=== PATIENT | female | born 1995 | race Two or more races ===

== ENCOUNTER → 2017-11-26 | Outpatient (CLI) | payer OTHER ==
[2017-11-26 09:34] LABS: ABSOLUTE LYMPHOCYTES (AUTO) 1.9 10^3/uL (0.5-4.7); ABSOLUTE MONOCYTES (AUTO) 0.4 10^3/uL (0.1-1.4); ABSOLUTE NEUT (AUTO) 2.8 10^3/uL (1.7-8.2); BASOPHILS % (AUTO) 0.8 % (0-2); EOSINOPHILS % (AUTO) 0.9 % (0-6); HEMATOCRIT 38.4 % (36.0-47.0); HEMOGLOBIN 13.1 g/dL (12.0-15.5); LYMPHOCYTES % (AUTO) 36.7 % (13-45); MEAN CORPUSCULAR HEMOGLOBIN 28.6 pg (27.0-33.4); MEAN CORPUSCULAR HGB CONC 34.2 g/dL (32.0-36.0); MEAN CORPUSCULAR VOLUME 84 fl (80-97); MONOCYTES % (AUTO) 7.9 % (3-13); PLATELET COUNT 266 10^3/uL (150-450); RED BLOOD COUNT 4.59 10^6/uL (3.72-5.28); RED CELL DISTRIBUTION WIDTH 13.2 % (11.5-14.0); SEGMENTED NEUTROPHILS % (AUTO) 53.7 % (42-78); TOTAL CELLS COUNTED % (AUTO) 100 %; WHITE BLOOD COUNT 5.2 10^3/uL (4.0-10.5)
[2017-11-26 09:50] LABS: ALANINE AMINOTRANSFERASE 30 U/L (9-52); ALBUMIN 4.3 g/dL (3.5-5.0); ALKALINE PHOSPHATASE 60 U/L (38-126); ANION GAP 11 (5-19); ASPARTATE AMINO TRANSFERASE 28 U/L (14-36); BILIRUBIN,DIRECT 0.3 mg/dL (0.0-0.4); BILIRUBIN,TOTAL 0.5 mg/dL (0.2-1.3); BLOOD UREA NITROGEN 15 mg/dL (7-20); CALCIUM 9.5 mg/dL (8.4-10.2); CARBON DIOXIDE 26 mmol/L (22-30); CHLORIDE 106 mmol/L (98-107); CHOLESTEROL 204.77 mg/dL (0-200); GLUCOSE 94 mg/dL (75-110); POTASSIUM 4.4 mmol/L (3.6-5.0); SODIUM 143.4 mmol/L (137-145); TOTAL PROTEIN 7.2 g/dL (6.3-8.2); TRIGLYCERIDES 53 mg/dL (<150)
[2017-11-26 10:01] LABS: DIRECT LDL 122 mg/dL (<100)
== END ==
LOC: LAB 08:40
PROVIDERS: ATTEND Physician Assistant
DX: R11.2 Nausea with vomiting, unspecified (principal); R53.83 Other fatigue; R14.0 Abdominal distension (gaseous)
CPT/HCPCS: 36415; 80053; 80061; 83516; 84443; 85025

== ENCOUNTER 2017-12-06 18:42 | Emergency (ER) | payer OTHER ==
--- NOTE | 2017-12-06 19:01 | ER Document Report ---
ED Medical Screen (RME) - General Chief Complaint: Vaginal Bleeding Stated Complaint: VAGINAL BLEEDING Time Seen by Provider: 12/06/17 18:56 Notes: RAPID MEDICAL EVALUATION DISCLOSURE I have seen this patient as part of a Rapid Medical Evaluation and, if applicable, placed any initially appropriate orders. The patient will be seen and fully evaluated, including a full history and physical exam, by a provider ( in Main ED or Fast Track) when a room becomes available. 22-year-old female here with complaints of left lower quadrant abdominal pain vaginal bleeding that started earlier today. She has passed some clots. She has had some lightheadedness but no actual syncope. She denies any dysuria frequency hesitancy. She does have a history of left-sided ovarian cyst. Has not taken anything for the pain. EXAM Mild LLQ TTP TRAVEL OUTSIDE OF THE [place] IN LAST 30 DAYS: No - Related Data Allergies/Adverse Reactions: No Known Allergies Allergy (Verified 12/06/17 18:59) Past Medical History - General Last Menstrual Period: 11/20/2017 - Social History Chew tobacco use (# tins/day): No Frequency of alcohol use: Occasional Drug Abuse: None Renal/ Medical History: Denies: Hx Peritoneal Dialysis Physical Exam - Vital signs Vitals: Temp Pulse Resp BP Pulse Ox 98.4 F 70 18 122/79 98 12/06/17 18:52 12/06/17 18:52 12/06/17 18:52 12/06/17 18:52 12/06/17 18:52 Course - Vital Signs Vital signs: Temp Pulse Resp BP Pulse Ox 98.4 F 70 18 122/79 98 12/06/17 18:52 12/06/17 18:52 12/06/17 18:52 12/06/17 18:52 12/06/17 18:52
[2017-12-06 19:25] LABS: ABSOLUTE BASOPHILS # (AUTO) 0.1 10^3/uL (0.0-0.2); ABSOLUTE EOSINOPHILS # (AUTO) 0.1 10^3/uL (0.0-0.6); ABSOLUTE LYMPHOCYTES (AUTO) 3.1 10^3/uL (0.5-4.7); ABSOLUTE MONOCYTES (AUTO) 0.5 10^3/uL (0.1-1.4); ABSOLUTE NEUT (AUTO) 3.2 10^3/uL (1.7-8.2); BASOPHILS % (AUTO) 0.9 % (0-2); EOSINOPHILS % (AUTO) 1.7 % (0-6); HEMATOCRIT 38.8 % (36.0-47.0); HEMOGLOBIN 13.2 g/dL (12.0-15.5); LYMPHOCYTES % (AUTO) 44.4 % (13-45); MEAN CORPUSCULAR HEMOGLOBIN 28.7 pg (27.0-33.4); MEAN CORPUSCULAR HGB CONC 34.2 g/dL (32.0-36.0); MEAN CORPUSCULAR VOLUME 84 fl (80-97); MONOCYTES % (AUTO) 7.3 % (3-13); PLATELET COUNT 341 10^3/uL (150-450); RED BLOOD COUNT 4.61 10^6/uL (3.72-5.28); RED CELL DISTRIBUTION WIDTH 12.8 % (11.5-14.0); SEGMENTED NEUTROPHILS % (AUTO) 45.7 % (42-78); TOTAL CELLS COUNTED % (AUTO) 100 %; WHITE BLOOD COUNT 6.9 10^3/uL (4.0-10.5)
[2017-12-06 19:33] LABS: APPEARANCE,URINE CLEAR; BILIRUBIN,URINE NEGATIVE (NEGATIVE); COLOR,URINE YELLOW; GLUCOSE, URINE NEGATIVE (NEGATIVE); KETONES,URINE NEGATIVE (NEGATIVE); LEUKOCYTE ESTERASE,URINE NEGATIVE (NEGATIVE); NITRITE,URINE NEGATIVE (NEGATIVE); PROTEIN,URINE NEGATIVE (NEGATIVE); URINE SPECIFIC GRAVITY 1.023; UROBILINOGEN,URINE NEGATIVE mg/dL (<2.0)
[2017-12-06 19:42] LABS: ANION GAP 12 (5-19); BLOOD UREA NITROGEN 14 mg/dL (7-20); CALCIUM 9.9 mg/dL (8.4-10.2); CARBON DIOXIDE 29 mmol/L (22-30); CHLORIDE 103 mmol/L (98-107); GLUCOSE 94 mg/dL (75-110); POTASSIUM 4.4 mmol/L (3.6-5.0); SODIUM 143.6 mmol/L (137-145)
--- NOTE | 2017-12-06 19:56 | RADIOLOGY REPORT (SQ) ---
EXAM DESCRIPTION: U/S NON OB PEL TV W/DOPPLER COMPLETED DATE/TIME: 12/06/2017 7:35 pm REASON FOR STUDY: L pelvic pain, hx cyst; eval cyst torsion COMPARISON: None. TECHNIQUE: Dynamic and static grayscale images acquired of the pelvis via transvaginal approach and recorded on PACS. Additional selected color Doppler and spectral images recorded. LIMITATIONS: Intervening bowel gas precludes adequate visualization of the ovaries. FINDINGS: UTERUS: Contour normal. No mass. ENDOMETRIAL STRIPE: No focal or generalized thickening. No masses. CERVIX: No nabothian cysts. RIGHT OVARY AND DOPPLER: Ovary not visualized. LEFT OVARY AND DOPPLER: Ovary not visualized. FREE FLUID: A small amount of simple appearing free fluid is seen within the pelvic cul-de-sac. OTHER: No other significant finding. MEASUREMENTS: UTERUS: 7.2 x 3.7 x 4.4 cm ENDOMETRIAL STRIPE: 0.1 cm RIGHT OVARY: Not visualized. LEFT OVARY: Not visualized. IMPRESSION: Intervening bowel gas precludes visualization of the ovaries. Normal sonographic appear ance of the uterus. TECHNICAL DOCUMENTATION: JOB ID: [id number]- All Rights Reserved Rev Reading location - IP/workstation name: [email or web address]
--- NOTE | 2017-12-06 20:15 | ER Document Report ---
ED GI/ - General Chief Complaint: Vaginal Bleeding Stated Complaint: VAGINAL BLEEDING Time Seen by Provider: 12/06/17 18:56 Mode of Arrival: Ambulatory Information source: Patient Notes: Patient is a 22-year-old female who presents to the ER today for heavy vaginal bleeding that started today with clots and some left lower quadrant pain. Patient states that she just had her menstrual cycle last week so "they should not be happening." Patient admits to history of ovarian cysts. Patient denies that she knows of. Patient denies any abnormal vaginal discharge or dysuria. TRAVEL OUTSIDE OF THE [place] IN LAST 30 DAYS: No - Related Data Allergies/Adverse Reactions: No Known Allergies Allergy (Verified 12/06/17 18:59) Past Medical History - General Information source: Patient Last Menstrual Period: 11/20/2017 - Social History Smoking Status: Never Smoker Chew tobacco use (# tins/day): No Frequency of alcohol use: Occasional Drug Abuse: None Family History: Reviewed & Not Pertinent Patient has suicidal ideation: No Patient has homicidal ideation: No Renal/ Medical History: Denies: Hx Peritoneal Dialysis Review of Systems - Review of Systems Constitutional: No symptoms reported EENT: No symptoms reported Cardiovascular: No symptoms reported Respiratory: No symptoms reported Gastrointestinal: No symptoms reported Genitourinary: No symptoms reported Female Genitourinary: See HPI Musculoskeletal: No symptoms reported Skin: No symptoms reported Hematologic/Lymphatic: No symptoms reported Neurological/Psychological: No symptoms reported Physical Exam - Vital signs Vitals: Temp Pulse Resp BP Pulse Ox 98.4 F 70 18 122/79 98 12/06/17 18:52 12/06/17 18:52 12/06/17 18:52 12/06/17 18:52 12/06/17 18:52 - Notes Notes: PHYSICAL EXAMINATION: GENERAL: Well-appearing and in no acute distress. HEAD: Atraumatic, normocephalic. EYES: Pupils equal round and reactive to light, extraocular movements intact, sclera anicteric, conjunctiva are normal. NECK: Normal range of motion, supple without lymphadenopathy LUNGS: CTAB and equal. No wheezes rales or rhonchi. HEART: Regular rate and rhythm without murmurs ABDOMEN: Soft, mild left lower quadrant tenderness. No guarding, no rebound BACK: no vertebral tenderness, normal ROM GI/: no CVA tenderness EXTREMITIES: Normal range of motion, no pitting edema. No cyanosis. NEUROLOGICAL: Cranial nerves grossly intact. Normal sensory/motor exams. PSYCH: Normal mood, normal affect. SKIN: Warm, Dry, normal turgor, no rashes or lesions noted Course - Re-evaluation Re-evalutation: 12/06/17 22:28 Lab work is all unremarkable today including a normal hemoglobin and negative test. Transvaginal ultrasound ordered in triage reports a normal uterus but cannot visualize ovaries due to overlying bowel gas. Patient may have an ovarian cyst that we cannot see today. I did offer patient pelvic and she declines. Urinalysis negative for infection. 12/06/17 22:29 - Vital Signs Vital signs: Temp Pulse Resp BP Pulse Ox 98.4 F 72 20 112/68 100 12/06/17 20:41 12/06/17 20:41 12/06/17 20:41 12/06/17 20:41 12/06/17 20:41 - Laboratory Result Diagrams: 12/06/17 19:12 12/06/17 19:12 Laboratory results interpreted by me: 12/06/17 19:12 Urine Blood SMALL H Discharge - Discharge Clinical Impression: Heavy period Qualifiers: Menorrahagia type: with irregular cycle Qualified Code(s): N92.1 - Excessive and frequent menstruation with irregular cycle Condition: Stable Disposition: HOME, SELF-CARE Additional Instructions: Return immediately for any new or worsening symptoms. Follow up with primary care provider, call tomorrow to make followup appointment. Drink plenty of water. Prescriptions: Ibuprofen [Motrin 800 mg Tablet] 800 mg PO Q8H PRN #30 tab PRN Reason: Referrals: [facility] [Provider Group] - Follow up as needed
[2017-12-06 21:03] VITALS: BP 112/68
== END 2017-12-06 20:43 | disposition home or self-care (01) ==
LOC: ER 18:42
DX: N92.1 Excessive and frequent menstruation with irregular cycle (principal); R10.32 Left lower quadrant pain; Z87.42 Personal history of other diseases of the female genital tract
CPT/HCPCS: 36415; 76830; 80048; 81001; 81025; 85025; 93976; 99284

== ENCOUNTER 2018-06-25 14:43 | Emergency (ER) | payer SELFPAY ==
--- NOTE | 2018-06-25 15:10 | ER Document Report ---
ED Medical Screen (RME) - General Chief Complaint: Abdominal Pain Stated Complaint: ABDOMINAL PAIN/DIZZINESS Time Seen by Provider: 06/25/18 14:49 TRAVEL OUTSIDE OF THE [place] IN LAST 30 DAYS: No - HPI Notes: 06/25/18 15:09 Increased pain right ovary states history of blood clots on a very scheduled for surgery told to come in by PROMOTIONS DIRECTOR - Related Data Allergies/Adverse Reactions: No Known Allergies Allergy (Verified 06/25/18 14:59) Past Medical History - Social History Frequency of alcohol use: None Drug Abuse: None - Past Medical History Cardiac Medical History: Denies: Hx Coronary Artery Disease, Hx Heart Attack, Hx Hypertension Pulmonary Medical History: Denies: Hx Asthma, Hx Bronchitis, Hx COPD, Hx Pneumonia Neurological Medical History: Denies: Hx Cerebrovascular Accident, Hx Seizures Renal/ Medical History: Denies: Hx Peritoneal Dialysis Musculoskeltal Medical History: Denies Hx Arthritis Past Surgical History: Reports: Hx Section - 1 - Immunizations Hx Diphtheria, Pertussis, Tetanus Vaccination: No History of Influenza Vaccine for 02/2017 - 07/2017 Season: No Review of Systems - Review of Systems Gastrointestinal: Abdominal pain Physical Exam - Vital signs Vitals: Temp Pulse Resp BP Pulse Ox 98.7 F 79 16 116/70 99 06/25/18 14:48 06/25/18 14:48 06/25/18 14:48 06/25/18 14:48 06/25/18 14:48 - Respiratory Respiratory status: No respiratory distress Chest status: Nontender Breath sounds: Normal Chest palpation: Normal Course - Vital Signs Vital signs: Temp Pulse Resp BP Pulse Ox 97.9 F 114 H 22 H 130/83 H 98 06/25/18 14:53 06/25/18 14:53 06/25/18 14:53 06/25/18 14:53 06/25/18 14:53
[2018-06-25 15:27] LABS: ABSOLUTE EOSINOPHILS # (AUTO) 0.1 10^3/uL (0.0-0.6); ABSOLUTE LYMPHOCYTES (AUTO) 1.8 10^3/uL (0.5-4.7); ABSOLUTE MONOCYTES (AUTO) 0.8 10^3/uL (0.1-1.4); ABSOLUTE NEUT (AUTO) 6.1 10^3/uL (1.7-8.2); BASOPHILS % (AUTO) 0.5 % (0-2); EOSINOPHILS % (AUTO) 1.2 % (0-6); HEMATOCRIT 40.3 % (36.0-47.0); HEMOGLOBIN 13.7 g/dL (12.0-15.5); MEAN CORPUSCULAR HEMOGLOBIN 28.4 pg (27.0-33.4); MEAN CORPUSCULAR VOLUME 84 fl (80-97); MONOCYTES % (AUTO) 8.6 % (3-13); PLATELET COUNT 259 10^3/uL (150-450); RED BLOOD COUNT 4.82 10^6/uL (3.72-5.28); RED CELL DISTRIBUTION WIDTH 13.5 % (11.5-14.0); SEGMENTED NEUTROPHILS % (AUTO) 69.7 % (42-78); TOTAL CELLS COUNTED % (AUTO) 100 %; WHITE BLOOD COUNT 8.8 10^3/uL (4.0-10.5)
[2018-06-25] MEDS ORDERED: OXYCODONE-ACETAMINOPHEN 5-325 MG TABLET PO ONE (15:38)
[2018-06-25] MEDS ORDERED: ONDANSETRON 4 MG TAB.RAPDIS PO ONE (15:38)
[2018-06-25 15:44] LABS: ALANINE AMINOTRANSFERASE 27 U/L (9-52); ALBUMIN 4.7 g/dL (3.5-5.0); ALKALINE PHOSPHATASE 71 U/L (38-126); ANION GAP 11 (5-19); ASPARTATE AMINO TRANSFERASE 17 U/L (14-36); BILIRUBIN,DIRECT 0.1 mg/dL (0.0-0.4); BILIRUBIN,TOTAL 0.4 mg/dL (0.2-1.3); BLOOD UREA NITROGEN 19 mg/dL (7-20); CALCIUM 9.9 mg/dL (8.4-10.2); CARBON DIOXIDE 28 mmol/L (22-30); CHLORIDE 102 mmol/L (98-107); GLUCOSE 93 mg/dL (75-110); LIPASE 90.5 U/L (23-300); SODIUM 140.7 mmol/L (137-145); TOTAL PROTEIN 7.6 g/dL (6.3-8.2)
[2018-06-25 15:45] LABS: POTASSIUM 4.8 mmol/L (3.6-5.0)
--- NOTE | 2018-06-25 15:46 | ER Document Report ---
ED General - General Chief Complaint: Abdominal Pain Stated Complaint: ABDOMINAL PAIN/DIZZINESS Time Seen by Provider: 06/25/18 14:49 Mode of Arrival: Ambulatory Information source: Patient, Dr. Office Notes: 22-year-old female with history of ovarian cysts, known right ovarian vein clot was sent over by her LOG MANAGER Dr. Roberts due to the patient's report of increasing pain, nausea and dizziness. Patient reports that she is scheduled for an oophorectomy next July 03. Patient is not currently on any anticoagulation. Patient denies dysuria, hematuria, vaginal discharge, shortn ess of breath, chest pain. She does admit to associated nausea without vomiting, low back pain and increased right lower quadrant abdominal pain. Last menstrual period was 1 month prior to arrival. TRAVEL OUTSIDE OF THE [place] IN LAST 30 DAYS: No - HPI Onset: Other Onset/Duration: Intermittent Quality of pain: Throbbing Severity: Moderate Associated symptoms: Chills, Nausea, Other - Back pain, dizziness. denies: Chest pain, Diarrhea, Fever, Vomiting, Shortness of breath Exacerbated by: Denies Relieved by: Denies Similar symptoms previously: Yes Recently seen / treated by doctor: Yes - Related Data Allergies/Adverse Reactions: No Known Allergies Allergy (Verified 06/25/18 14:59) Past Medical History - General Information source: Patient - Social History Smoking Status: Never Smoker Frequency of alcohol use: None Drug Abuse: None Lives with: Spouse/Significant other Family History: Reviewed & Not Pertinent Patient has suicidal ideation: No Patient has homicidal ideation: No - Past Medical History Cardiac Medical History: Denies: Hx Coronary Artery Disease, Hx Heart Attack, Hx Hypertension Pulmonary Medical History: Denies: Hx Asthma, Hx Bronchitis, Hx COPD, Hx Pneumonia Neurological Medical History: Denies: Hx Cerebrovascular Accident, Hx Seizures Renal/ Medical History: Denies: Hx Peritoneal Dialysis Musculoskeletal Medical History: Denies Hx Arthritis Past Surgical History: Reports: Hx Section - 1 - Immunizations Hx Diphtheria, Pertussis, Tetanus Vaccination: No Review of Systems - Review of Systems Notes: REVIEW OF SYSTEMS: CONSTITUTIONAL : Denies fever, chills, or sweats. Denies recent illness. Denies weight loss, recent hospitalizations. EENT: Denies visual changes, eye pain. Denies sore throat, oral lesions, difficulty swallowing. CARDIOVASCULAR: Denies chest pain. Denies palpitations. Denies lower extremity edema. RESPIRATORY: Denies cough. Denies shortness of breath, wheezing. GASTROINTESTINAL: Denies abdominal distention. Denies vomiting, or diarrhea. Denies blood in vomitus, stools, or per rectum. Denies black, tarry stools. Denies constipation. GENITOURINARY: Denies difficulty urinating, painful urination, frequency, blood in urine, or vaginal discharge. MUSCULOSKELETAL: Denies neck pain or stiffness. Denies joint pain or swelling. SKIN: Denies rash, lesions or sores. HEMATOLOGIC : Denies easy bruising or bleeding. LYMPHATIC: Denies swollen glands. NEUROLOGICAL: Denies confusion or altered mental status. Denies loss of consciousness. Denies dizziness or lightheadedness. Denies headache. Denies weakness or paralysis. Denies problems difficulty with ambulation, slurred speech. Denies sensory loss, numbness, or tingling. Denies seizures. PSYCHIATRIC: Denies anxiety or stress. Denies depression, suicidal ideation, or homicidal ideation. Denies visual or auditory hallucinations. Physical Exam - Vital signs Vitals: Temp Pulse Resp BP Pulse Ox 98.7 F 79 16 116/70 99 06/25/18 14:48 06/25/18 14:48 06/25/18 14:48 06/25/18 14:48 06/25/18 14:48 - Notes Notes: PHYSICAL EXAMINATION: GENERAL: Well-appearing, well-nourished and in no acute distress. HEAD: Atraumatic, normocephalic. EYES: Pupils equal round and reactive to light, extraocular movements intact, conjunctiva are normal. ENT: Nares patent, oropharynx clear without exudates. Moist mucous membranes. NECK: Normal range of motion, supple without lymphadenopathy LUNGS: Breath sounds clear to auscultation bilaterally and equal. No wheezes rales or rhonchi. HEART: Regular rate and rhythm without murmurs ABDOMEN: Soft, nontender, nondistended abdomen. No guarding, no rebound. No masses appreciated. Female : Pelvic exam; External genitalia unremarkable. Speculum exam with white discharge. Vaginal wall unremarkable. Os closed. No cervical motion tenderness. right adnexal tenderness appreciated. Swabs obtained for gonorrhea, chlamydia and wet prep. Musculoskeletal: Normal range of motion, no pitting or edema. No cyanosis. NEUROLOGICAL: Cranial nerves grossly intact. Normal speech, normal gait. Normal sensory, motor exams PSYCH: Normal mood, normal affect. SKIN: Warm, Dry, normal turgor, no rashes or lesions noted. Course - Re-evaluation Re-evalutation: 06/25/18 15:50 Temp Pulse Resp BP Pulse Ox 97.9 F 114 H 22 H 130/83 H 98 06/25/18 14:53 06/25/18 14:53 06/25/18 14:53 06/25/18 14:53 06/25/18 14:53 Transvaginal US 06/25/18 14:54 IMPRESSION: UNABLE TO VISUALIZE THE LEFT OVARY. 1.4 X 3.0 CM COMPLEX CYST CONTAINING DEBRIS IN THE RIGHT OVARY. NO OTHER SIGNIFICANT FINDING. Laboratory 06/25/18 06/25/18 06/25/18 15:07 15:07 15:07 WBC 8.8 RBC 4.82 Hgb 13.7 Hct 40.3 MCV 84 MCH 28.4 MCHC 34.0 RDW 13.5 Plt Count 259 Seg Neutrophils % 69.7 Lymphocytes % 20.0 Monocytes % 8.6 Eosinophils % 1.2 Basophils % 0.5 Absolute Neutrophils 6.1 Absolute Lymphocytes 1.8 Absolute Monocytes 0.8 Absolute Eosinophils 0.1 Absolute Basophils 0.0 Sodium 140.7 Potassium 4.8 Chloride 102 Carbon Dioxide 28 Anion Gap 11 BUN 19 Creatinine 0.62 Est GFR ( Amer) > 60 Est GFR (Non-Af Amer) > 60 Glucose 93 Calcium 9.9 Total Bilirubin 0.4 Direct Bilirubin 0.1 Neonat Total Bilirubin Not Reportable Neonat Direct Bilirubin Not Reportable Neonat Indirect Bili Not Reportable AST 17 ALT 27 Alkaline Phosphatase 71 Total Protein 7.6 Albumin 4.7 Lipase 90.5 Serum HCG, Qual NEGATIVE Urine Color Urine Appearance Urine pH Ur Specific [place] Urine Protein Urine Glucose (UA) Urine Ketones Urine Blood Urine Nitrite Urine Bilirubin Urine Urobilinogen Ur Leukocyte Esterase Urine WBC (Auto) Urine RBC (Auto) Urine Bacteria (Auto) Squamous Epi Cells Auto Urine Mucus (Auto) Urine Ascorbic Acid Epi Cells (Wet Prep) Bacteria (Wet Prep) Trichomonas (Wet Prep) Vaginal WBC Vaginal RBC Vaginal Yeast 06/25/18 06/25/18 15:08 16:00 WBC RBC Hgb Hct MCV MCH MCHC RDW Plt Count Seg Neutrophils % Lymphocytes % Monocytes % Eosinophils % Basophils % Absolute Neutrophils Absolute Lymphocytes Absolute Monocytes Absolute Eosinophils Absolute Basophils Sodium Potassium Chloride Carbon Dioxide Anion Gap BUN Creatinine Est GFR ( Amer) Est GFR (Non-Af Amer) Glucose Calcium Total Bilirubin Direct Bilirubin Neonat Total Bilirubin Neonat Direct Bilirubin Neonat Indirect Bili AST ALT Alkaline Phosphatase Total Protein Albumin Lipase Serum HCG, Qual Urine Color YELLOW Urine Appearance CLEAR Urine pH 6.0 Ur Specific [place] 1.024 Urine Protein NEGATIVE Urine Glucose (UA) NEGATIVE Urine Ketones NEGATIVE Urine Blood SMALL H Urine Nitrite NEGATIVE Urine Bilirubin NEGATIVE Urine Urobilinogen NEGATIVE Ur Leukocyte Esterase NEGATIVE Urine WBC (Auto) 1 Urine RBC (Auto) 2 Urine Bacteria (Auto) 1+ Squamous Epi Cells Auto 1 Urine Mucus (Auto) RARE Urine Ascorbic Acid NEGATIVE Epi Cells (Wet Prep) 3+ EPITHELIALS SEEN Bacteria (Wet Prep) 3+ BACTERIA SEEN Trichomonas (Wet Prep) NO TRICHOMONAS SEEN Vaginal WBC 2+ WBCS SEEN Vaginal RBC NO RBCS SEEN Vaginal Yeast NO YEAST SEEN 22-year-old female presents with right lower quadrant abdominal pain that has been ongoing for several weeks with worsening over the last few days. 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 06/25/18 17:14 Patient reevaluated after receiving a Percocet and Zofran. She reports improvement of her pain and nausea. Ultrasound was reviewed and showed no evidence of torsion but did show a complex cyst with debris which could possibly be the "clot" that the patient was told that she had. Wet mount does show evidence of bacterial vaginosis for which the patient was given her first dose of Flagyl for. CBC, CMP, urinalysis, urine test are unremarkable. Gonorrhea and chlamydia negative. Patient was provided a copy of her ultrasound report. Patient was evaluated and treated as appropriate for the patient's presenting symptoms and complaint, with consideration of any critical or life threatening conditions that may be associated with their obtained history and exam as noted above. All results were discussed with patient and her who is at the bedside patient provided the opportunity to ask questions, and express concerns. Patient was educated on treatments based on their presumed diagnosis as noted above. At this time we will discharge the patient with return precautions and follow-up recommendations. Verbal discharge instructions given a the bedside. Medication warnings reviewed. Patient is in agreement with this plan and has verbalized understanding of return precautions. After careful consideration I feel that that patient can be safely discharged from the emergency department, they were advised to followup with a primary care physician in 2-3 days. Dictation on this chart was performed using voice recognition software and may result in unintended grammatical, spelling, syntax or errors. 06/25/18 23:09 - Vital Signs Vital signs: Temp Pulse Resp BP Pulse Ox 97.2 F 76 16 108/62 100 06/25/18 18:18 06/25/18 18:18 06/25/18 18:18 06/25/18 18:18 06/25/18 18:18 - Laboratory Result Diagrams: 06/25/18 15:07 06/25/18 15:07 Laboratory results interpreted by me: 06/25/18 15:08 Urine Blood SMALL H - Diagnostic Test Radiology reviewed: Image reviewed, Reports reviewed Discharge - Discharge Clinical Impression: Bacterial vaginosis, Right lower quadrant abdominal pain Ovarian cyst Qualifiers: Laterality: right Qualified Code(s): N83.201 - Unspecified ovarian cyst, right side Condition: Good Disposition: HOME, SELF-CARE Instructions: Abdominal Pain ([facility]), Observation for Appendicitis ([facility]), Ovarian Cyst ([facility]), Vaginosis, Bacterial ([facility]) Additional Instructions: You are being treated for bacterial vaginosis, an overgrowth of normal bacteria in the vagina. You are being sent home on an antibiotic called metronidazole. Take exactly as directed. Never drink alcohol while taking this antibiotic. Please return if you develop abdominal pain, fever greater than 101F, some vomiting, or any other symptoms that are concerning to you. Prescriptions: Ibuprofen [Motrin 600 Mg Tablet] 600 mg PO TID #15 tablet Metronidazole [Flagyl 500 mg Tablet] 500 mg PO BID 7 Days #14 tablet Ondansetron [Zofran Odt 4 mg Tablet] 1 - 2 tab PO Q4H PRN #15 tab.rapdis PRN Reason: For Nausea/Vomiting Oxycodone HCl/Acetaminophen [Percocet 5-325 mg Tablet] 1 tab PO Q8H PRN #10 tab PRN Reason:
[2018-06-25 15:54] LABS: APPEARANCE,URINE CLEAR; BILIRUBIN,URINE NEGATIVE (NEGATIVE); COLOR,URINE YELLOW; GLUCOSE, URINE NEGATIVE (NEGATIVE); KETONES,URINE NEGATIVE (NEGATIVE); LEUKOCYTE ESTERASE,URINE NEGATIVE (NEGATIVE); NITRITE,URINE NEGATIVE (NEGATIVE); PROTEIN,URINE NEGATIVE (NEGATIVE); URINE SPECIFIC GRAVITY 1.024; UROBILINOGEN,URINE NEGATIVE mg/dL (<2.0)
[2018-06-25 16:29] LABS: BACTERIA (WET MOUNT) 3+ BACTERIA SEEN; EPITHELIALS (WET MOUNT) 3+ EPITHELIALS SEEN; RBCS (WET MOUNT) NO RBCS SEEN; T.VAGINALIS (WET MOUNT) NO TRICHOMONAS SEEN; WBCS (WET MOUNT) 2+ WBCS SEEN; YEAST (WET MOUNT) NO YEAST SEEN
--- NOTE | 2018-06-25 16:41 | RADIOLOGY REPORT (SQ) ---
EXAM DESCRIPTION: U/S NON OB PEL TV W/DOPPLER COMPLETED DATE/TIME: 06/25/2018 4:29 pm REASON FOR STUDY: eval torsion COMPARISON: 12/06/2017. TECHNIQUE: Dynamic and static grayscale images acquired of the pelvis via transvaginal approach and recorded on PACS. Additional selected color Doppler and spectral images recorded. LIMITATIONS: None. FINDINGS: UTERUS: Contour normal. No mass. ENDOMETRIAL STRIPE: No focal or generalized thickening. No masses. CERVIX: No nabothian cysts. RIGHT OVARY AND DOPPLER: Normal size. Complex cyst containing debris, measuring 1.4 x 3.0 cm. Normal arterial vascular flow without evidence for torsion. LEFT OVARY AND DOPPLER: Ovary not visualized. FREE FLUID: None noted. OTHER: No other significant finding. MEASUREMENTS: UTERUS: 3.8 x 4.8 x 8.1 cm. ENDOMETRIAL STRIPE: 4.6 mm. RIGHT OVARY: 2.5 x 2.9 x 3.0 cm. LEFT OVARY: Not visualized. IMPRESSION: UNABLE TO VISUALIZE THE LEFT OVARY. 1.4 X 3.0 CM COMPLEX CYST CONTAINING DEBRIS IN THE RIGHT OVARY. NO OTHER SIGNIFICANT FINDING. TECHNICAL DOCUMENTATION: JOB ID: [id number] [employer]- All Rights Reserved Rev-10/10 Reading location - IP/workstation name: [email or web address]
[2018-06-25] MEDS ORDERED: METRONIDAZOLE 500 MG TABLET PO ONE (17:14)
[2018-06-25 17:43] LABS: CHLAM PCR NOT DETECTED (NOT DETECT); GON PCR NOT DETECTED (NOT DETECT)
[2018-06-25 18:19] VITALS: BP 108/62
== END 2018-06-25 18:21 | disposition home or self-care (01) ==
LOC: ER 14:43
DX: N76.0 Acute vaginitis (principal); B96.89 Other specified bacterial agents as the cause of diseases classified elsewhere; N83.201 Unspecified ovarian cyst, right side; I82.890 Acute embolism and thrombosis of other specified veins; R10.31 Right lower quadrant pain; R11.0 Nausea; R42 Dizziness and giddiness; M54.5 Low back pain; R68.83 Chills (without fever)
CPT/HCPCS: 99284; 36415; 87210; 83690; 84703; 85025; 80053; 81001; 87491; 87591; 76830; 93976; S0119

== ENCOUNTER 2018-07-03 08:40 | Day surgery (SDC) | payer OTHER ==
[2018-07-01 13:20] LABS: APPEARANCE,URINE CLEAR; BILIRUBIN,URINE NEGATIVE (NEGATIVE); COLOR,URINE YELLOW; GLUCOSE, URINE NEGATIVE (NEGATIVE); KETONES,URINE NEGATIVE (NEGATIVE); LEUKOCYTE ESTERASE,URINE NEGATIVE (NEGATIVE); NITRITE,URINE NEGATIVE (NEGATIVE); PROTEIN,URINE NEGATIVE (NEGATIVE); URINE SPECIFIC GRAVITY 1.026
[2018-07-01 13:55] LABS: MEAN CORPUSCULAR HEMOGLOBIN 29.8 pg (27.0-33.4); MEAN CORPUSCULAR VOLUME 85 fl (80-97); PLATELET COUNT 267 10^3/uL (150-450); RED BLOOD COUNT 4.34 10^6/uL (3.72-5.28); RED CELL DISTRIBUTION WIDTH 13.1 % (11.5-14.0); WHITE BLOOD COUNT 5.4 10^3/uL (4.0-10.5)
[2018-07-01 14:25] LABS: ANION GAP 8 (5-19); BLOOD UREA NITROGEN 18 mg/dL (7-20); CALCIUM 9.4 mg/dL (8.4-10.2); CARBON DIOXIDE 30 mmol/L (22-30); CHLORIDE 102 mmol/L (98-107); GLUCOSE 85 mg/dL (75-110); POTASSIUM 4.8 mmol/L (3.6-5.0); SODIUM 140.3 mmol/L (137-145)
[~2018-07-03 08:40] MED LIST: ACETAMINOPHEN 1,000 MG/100 ML RTUPB IV ONE; DEXAMETHASONE SOD PHOSPHATE INJ 4 MG/1 ML VIAL ONE; FENTANYL CITRATE INJ/PF 100 MCG/2 ML AMPUL ONE; LACTATED RINGERS 1000 ML IV PRN; LIDOCAINE 0.5% INJ-PF (5 MG/ML) 50 ML SDV SUBCUT PRN; LIDOCAINE 2% INJ-PF (20 MG/ML) 10 ML AMPUL ONE; MIDAZOLAM 2 MG/2 ML INJ ONE; ONDANSETRON HCL INJ/PF 4 MG/2 ML SDV ONE; PROPOFOL INJ 200 MG/20 ML VIAL IV ONE; SUGAMMADEX SODIUM 200 MG/2 ML SDV IV ONE
[2018-07-03] MEDS ORDERED: CEFAZOLIN 1 GM/D5W RTU 1 GM/50 ML RTUPB IV ONE (08:58)
[2018-07-03] MEDS ORDERED: SCOPOLAMINE HYDROBROMIDE 1.5 MG PATCH.TD72 TD ONE (09:45)
[2018-07-03] MEDS ORDERED: FAMOTIDINE INJ/PF 20 MG/2 ML SDV IV ONE ×2 (09:45→09:53)
[2018-07-03] MEDS ORDERED: MIDAZOLAM 2 MG/2 ML INJ IV ONE (09:45)
[2018-07-03] MEDS ORDERED: METOCLOPRAMIDE HCL INJ/PF 10 MG/2 ML SDV IV ONE (09:45)
[2018-07-03] MEDS ORDERED: MIDAZOLAM 2 MG/2 ML INJ ONE (09:52)
[2018-07-03] MEDS ORDERED: METOCLOPRAMIDE HCL INJ/PF 10 MG/2 ML SDV ONE (09:52)
[2018-07-03] MEDS ORDERED: SCOPOLAMINE HYDROBROMIDE 1.5 MG PATCH.TD72 ONE (09:52)
[2018-07-03] MEDS ORDERED: BUPIVACAINE INJ/PF LIPOSOME/PF 266 MG/20 ML SDV ONE (10:30)
[2018-07-03] MEDS ORDERED: ONDANSETRON HCL INJ/PF 4 MG/2 ML SDV IV PRN (11:14)
[2018-07-03] MEDS ORDERED: DIPHENHYDRAMINE HCL 50 MG/ML VIAL IV PRN (11:14)
[2018-07-03] MEDS ORDERED: PROMETHAZINE HCL INJ 25 MG/1 ML VIAL IV PRN ×2 (11:14)
[2018-07-03] MEDS ORDERED: MORPHINE SULFATE 10 MG/ML INJ IV PRN (11:14)
[2018-07-03] MEDS ORDERED: MEPERIDINE HCL/PF INJ 25 MG/1 ML DISP.SYRIN IV PRN (11:14)
[2018-07-03] MEDS ORDERED: FENTANYL CITRATE INJ/PF 100 MCG/2 ML AMPUL IV PRN ×3 (11:14)
[2018-07-03] MEDS ORDERED: FENTANYL CITRATE INJ/PF 100 MCG/2 ML AMPUL ONE (12:03)
--- NOTE | 2018-07-03 12:13 | OPERATIVE REPORT E ---
Operative Report NAME: LACHELLE CHÁVEZ : 1995 AGE: 23Y DATE OF SURGERY: 07/03/2018 ROOM: PREOPERATIVE DIAGNOSIS: Right ovarian cyst. POSTOPERATIVE DIAGNOSIS: Right ovarian cyst. OPERATION: Exploratory laparotomy with right ovarian cystectomy. SURGEON: HEATHER LYLES M.D. ANESTHESIA: General endotracheal and postoperative Exparel. COMPLICATIONS: None. FINDINGS: Approximately a 2 to 3 cm ovarian cyst that was hemorrhagic in nature. Normal left ovary was noted. Normal uterus was seen. Normal tubes otherwise noted. Pelvis appeared to be within normal limits. No evidence of endometriosis. ESTIMATED BLOOD LOSS: Less than 10 mL. INDICATIONS FOR PROCEDURE: The patient has been having persistent right pelvic pain since January of last year. She was treated clinically for hemorrhagic corpus luteum as demonstrated by ultrasound. Pain became progressive and worsening in nature. Treatment options were discussed further. The patient desired attempt at definitive therapy, including oophorectomy if necessary. The usual risks of bleeding, infection, anesthesia, damage to organs and tissues have been discussed with the patient. No guarantees or warranties regarding future pain relief have been made with the patient. She does not desire any further children at this point. PROCEDURE: The patient was taken to the operating room and placed in the supine position. After adequate anesthesia was ascertained she was prepped and draped in the usual manner for an exploratory laparotomy through the previous Pfannenstiel. Bladder was drained using sterile technique. EUA performed. The incision was extended through the subcutaneous fat and fascia, the peritoneum entered without difficulty, and extended superiorly and inferiorly to allow proper visualization of the pelvis. Abdominal contents were packed out of the pelvis. Complete exploration of the pelvis was noted. The right ovary was brought into the operative field. An ovarian cyst was noted and palpated. Using cautery the cyst was enucleated from the ovary itself and the ovary itself was then oversewn with a 3-0 interlocking chromic catgut. Good hemostasis was noted at this aspect of the procedure. Clinically, hemorrhage corpus luteum versus dermoid versus endometrioma. The abdomen was copiously irrigated and the pack removed. The fascia was then closed with a #1 PDS stitch. Exparel was instilled. Skin was approximated with skin elvira. At the completion of procedure all sponge and needle counts were correct. The patient was taken to the recovery room in stable condition. DICTATING PHYSICIAN: HEATHER LYLES M.D. [id number] PHY#: [id number] ID: [id number] JOB#: [id number] ACCT: [id number] cc:HEATHER LYLES M.D. >
[2018-07-03] MEDS ORDERED: KETOROLAC TROMETHAMINE INJ/PF 30 MG/1 ML SDV ONE (12:17)
[2018-07-03] MEDS ORDERED: OXYCODONE-ACETAMINOPHEN 5-325 MG TABLET PO PRN (12:30)
[2018-07-03] MEDS ORDERED: MORPHINE INJ 8 MG DOSE IM PRN (12:30)
[2018-07-03] MEDS ORDERED: MORPHINE INJ 6 MG DOSE (EDIT ROUTE) INJ PRN (12:30)
[2018-07-03] MEDS ORDERED: MORPHINE INJ 4 MG DOSE (EDIT ROUTE) INJ PRN (12:30)
[2018-07-03] MEDS ORDERED: PROMETHAZINE HCL INJ 25 MG/1 ML VIAL IM PRN (12:30)
[2018-07-03] MEDS ORDERED: OXYCODONE-ACETAMINOPHEN 5-325 MG TABLET ONE (13:10)
[2018-07-03] MEDS ORDERED: SUCCINYLCHOLINE CHLORIDE INJ 200 MG/10 ML VIAL ONE (15:00)
[2018-07-03] MEDS ORDERED: ROCURONIUM BROMIDE INJ 50 MG/5 ML VIAL IV ONE (15:00)
[2018-07-03 15:01] VITALS: BP 102/60
[2018-07-03] MEDS ORDERED: IBUPROFEN 800 MG TABLET PO SCH (18:00)
== END 2018-07-03 14:40 | disposition home or self-care (01) ==
LOC: OROUT 08:40
PROVIDERS: ATTEND Specialist
DX: N83.11 Corpus luteum cyst of right ovary (principal); Z88.8 Allergy status to other drugs, medicaments and biological substances
CPT/HCPCS: 86900; 86901; 36415; 86850; 85027; 81025; 80048; 81001; 88305 ×2; 58925; J2250; J0690; J3490 ×3; J1100; J3010; J1885; J2765; J0330; J2405; J2704; S0028; J0131; C9290; 840